=== PATIENT | male | born 1965 | race Two or more races ===

== ENCOUNTER 2017-03-06 10:09 | Day surgery (SDC) | payer OTHER ==
[2017-03-06 10:23] VITALS: BMI 28.2
[2017-03-06] MEDS ORDERED: PROPOFOL 20 ML ONE ×2 (10:46)
[2017-03-06] MEDS ORDERED: ePHEDrine SULFATE 50 MG/1 ML AMPULE ONE (11:47)
[2017-03-06 13:05] VITALS: BP 115/66; PULSE 75; TEMP 97.7
--- NOTE | 2017-03-11 13:20 | PATH ---
Surgical Pathology Report Patient Name: CHELSY HERNANDEZ [facility]. Rec. #: [id number] /Age/Gender: 1965 (Age: 51) / M Account: [id number] Location: [facility]-ENDOSCOPY Taken: 03/06/2017 Received: 03/06/2017 Reported: 03/11/2017 Physicians: Radha Rosario M.D. Specimen(s) Received BX CECUM Clinical History Preoperative diagnosis: Rule out colon cancer Postoperative diagnosis: Polyp Final Diagnosis CECUM, BIOPSY: COLONIC MUCOSA SHOWING MILD SURFACE HYPERPLASTIC CHANGE. Electronically Signed Queenie Hernandez M.D. Gross Description Received in formalin, labeled "cecum" is a alston, irregular portion of soft tissue measuring 0.4 cm. in greatest dimension. The specimen is submitted in toto in one cassette. 03/07/201703/07/2017
== END 2017-03-06 13:06 | disposition home or self-care (01) ==
LOC: FASU-ENDO 10:09
PROVIDERS: ATTEND Internal Medicine Gastroenterology
PROC: 0DBH8ZX Excision of Cecum, Via Natural or Artificial Opening Endoscopic, Diagnostic (ICD-10-PCS; principal; 2017-03-06 11:12)
DX: Z12.11 Encounter for screening for malignant neoplasm of colon (principal); D12.0 Benign neoplasm of cecum; K59.00 Constipation, unspecified; K62.89 Other specified diseases of anus and rectum; K64.1 Second degree hemorrhoids
CPT/HCPCS: 88305-TC